=== PATIENT | female | born 1990 | race Caucasian/White ===

== ENCOUNTER → 2019-06-10 15:50 | Observation (INO) ==
--- NOTE | 2019-06-10 15:58 | OB/GYN Progress Note ---
Date of Encounter: 06/10/19 Time of Encounter: 15:53 - Assessment and Plan (1) Uterine contractions Current Visit: Yes Status: Acute Initially made cervical change from 1-2 cm, after 2 more hours of ambulation, may no further cervical change. Discussed options with patient staying admitted in watching for change or being discharge. Patient decided to be discharged. Discharge home with labor and when to return to triage precautions. Patient verbalizes understanding and in agreement with plan (2) 38 weeks gestation of Current Visit: Yes Status: Acute Subjective - Subjective Interval history: 38+4 presents to triage with complaints of contractions. Patient having contractions all day which are getting stronger more freely together, reports good movement, denies vaginal bleeding or leaking of fluid. Antepartum ROS: movement normal, contractions, no loss of fluid, no vaginal bleeding Objective - Vital Signs Vital Signs: Intake and Output 06/09/19 06/10/19 06/10/19 23:59 07:59 15:59 Other: Weight 108.3 kg Patient Weight 06/10/19 23:59 Weight 108.3 kg - Exam FHR: auscultation normal Cervical dilation: 2-3/50/-2
== END | disposition home or self-care (01) ==
LOC: 1NENULAB
PROVIDERS: ADMIT Advanced Practice Midwife; ATTEND Advanced Practice Midwife

== ENCOUNTER 2019-06-17 11:59 | Inpatient (IN) ==
[2019-06-17] MEDS ORDERED: Ondansetron 4 MG/2 ML VIAL IVP PRN (12:20)
[2019-06-17] MEDS ORDERED: Lidocaine 1% 20 ML MDV ID PRN (12:20)
[2019-06-17] MEDS ORDERED: *HR* Nalbuphine 10 MG/ML AMPUL IVP PRN (12:20)
[2019-06-17] MEDS ORDERED: Famotidine 20 MG/2 ML VIAL IVP PRN (12:20)
[2019-06-17] MEDS ORDERED: Metoclopramide 10 MG/2 ML VIAL IVP PRN (12:20)
[2019-06-17] MEDS ORDERED: Naloxone 0.4 MG/ML INJ IVP PRN (12:20)
[2019-06-17] MEDS ORDERED: miSOPROStol 25 MCG TABLET VG PRN (12:29)
[2019-06-17] MEDS ORDERED: Ringers Solution, Lactated 1,000 ML IVC SCH (12:30)
[2019-06-17 12:42] LABS: Basophils % 0.1 %; Eosinophils % 0.5 %; Hematocrit 36.9 % (35.3-44.9); Hemoglobin 12.7 g/dL (11.5-15.4); Immature Granulocytes % 0.5 % (0-4); Lymphocytes # 1.8 K/mcL (0.6-4.6); Lymphocytes % 20.5 %; Mean Corpuscular HGB Conc 34.4 g/dL (31.6-35.5); Mean Platelet Volume 10.4 fL (9.4-12.4); Monocytes # 0.4 K/mcL (0.0-1.3); Neutrophils # 6.4 K/mcL (1.6-8.9); Platelet Count 272 K/mcL (140-400); Red Cell Distribution Width 12.3 % (11.5-14.5); Segmented Neutrophils % 74.4 %; White Blood Count 8.7 K/mcL (4.3-11.1)
[2019-06-17 12:50] LABS: Amphetamine Screen,Urine Negative ng/mL (Cutoff=1000); Barbiturate Screen,Urine Negative ng/mL (Cutoff=200); Benzodiazepines Screen,Urine Negative ng/mL (Cutoff=200); Cannabinoid Screen,Urine Negative ng/mL (Cutoff = 50); Cocaine Screen,Urine Negative ng/mL (Cutoff= 300); Opiate Screen,Urine Negative ng/mL (Cutoff=300); Phencyclidine Screen,Urine Negative ng/mL (Cutoff=25)
--- NOTE | 2019-06-17 12:58 | OB/GYN History & Physical ---
Date of Encounter: 06/17/19 Time of Encounter: 12:53 Assessment and Plan (1) and not yet delivered in third trimester Current visit: Yes Status: Acute (2) 39 weeks gestation of Current visit: Yes Status: Acute (3) Elective induction of labor planned Current visit: Yes Status: Acute Patient be induced with a Campbell catheter and Cytotec plan is to anticipate vaginal delivery History of Present Illness HPI: Ms. Marino is a 28 year old female 4 para 3002 at 39-4/7 weeks who presented for induction of labor secondary to term with favorable cervix. Patient has been seen recently delivery was diagnosed as being 2-3 cm. Patient's history is complicated with her last baby had major cardiac anomaly and after . Patient has had a echo and maternal medicine consultations with this and everything has been ruled out. Patient recently had an ultrasound which placed the baby at 3270 g which was the 80th percentile for growth that she had an amniotic fluid index of 23 cm. There was a recommendation by maternal- medicine when she hit 39 week range to talk about induction. She was having contractions but is not having any contractions at this time still having good movement no vaginal bleeding discharge no leaking of fluid, patient is O+, GBS negative, rubella positive, Varicella positive. Past Med Surg Social Fam HX - Past Medical History Source: patient, old records reviewed Medical history: no medical history Additional medical history: History of endometriosis Psychiatric history: no psych history - Past Surgical History Additional surgical history: laparoscopy at 18 for endometriosis. wisdom teeth - Social History Smoking Status: Never smoker Smokeless Tobacco Status: No Alcohol use: none Drug use: none Occupational status: employed Current living situation: Home - Independent Activity Level: Independent ambulation Recent Out of Country Travel Within the Last 8 Weeks: No Exposure or Possible Exposure to Illness During Travel: No - Family History Mother Living Status: Still Living Hx Family Cardiac Disorders: No Hx Family Respiratory Disorders: No Hx Family Cancer: No Hx Family GI Disorders: No Hx Family Genitourinary Disorders: No Hx Family Endocrine Disorder: No Hx Family Musculoskeletal Disorders: No Hx Family Neuromuscular Disorders: No Hx Family Neurologic Disorders: No Hx Family HEENT Disorders: No Hx Family Autoimmune Disorders: No Hx Family Reproductive Disorders: No Hx Family Psychosocial Disorders: No Hx Family Medical Disorders: No - Additional Family History Additional family history: Family history noncontributory Obstetrical History - Pregnancies : 4 Para: 3 Term: 3 : 0 Ab's: 0 Livin Medications and Allergies Pnv95/Ferrous Fumarate/FA [ Vitamin Tablet] 1 tab PO DAILY 06/10/19 [History] Allergy/AdvReac Type Severity Reaction Status Date / Time ketorolac [From Toradol] Allergy See Verified 06/17/19 12:25 Comments Review of System OB All systems PM: reviewed and no additional remarkable complaints except as stated Exam - Constitutional Constitutional: well developed, well nourished, no acute distress, average body habitus - HEENT HEENT: EOMI, PERRL, Normocephaly, Mucus Membranes Moist - Neck Neck exam: full ROM - Lungs Respiratory exam: CTAB - Cardiovascular Cardiovascular exam: RRR - Abdomen Abdomen: Present: bowel sounds normal, gravid ( heart tones 140s reactive no contraction seen) - Cervix Dilation: 2 Effacement: 80 Station: -3 (Campbell catheter placed with 40 mL balloon inflated followed by 25 g of Cytotec placed vaginally) - Uterus Uterus exam: Present: enlarged Results Result Diagrams: 06/17/19 12:20 All other labs normal. - VTE Reasons for not Prescribing Prophylaxis: Treatment not Indicated - Low risk for VTE
[2019-06-17] MEDS ORDERED: Epidural Premix (fent/bupiv) 110 ML EP SCH (14:00)
--- NOTE | 2019-06-17 14:07 | Anesthesia Evaluation PreOp ---
Date of Encounter: 06/17/19 Time of Encounter: 14:09 - Past History Planned Operation: del, , 39wk induction Cardiac History: Denies any Significant Hx Pulmonary History: Denies Any Significant HX BUILDER'S LABOURER History: Denies Any Significant HX Other Medical History: Denies Any Significant HX Anesthesia History: No Prior Anesthetic Complications, Past Anesthesia (3 previous epidural, first one did not work well, no other known anes comp) Alcohol Use: none Drug use: none Medications and Allergies Pnv95/Ferrous Fumarate/FA [ Vitamin Tablet] 1 tab PO DAILY 06/10/19 [History] Allergy/AdvReac Type Severity Reaction Status Date / Time ketorolac [From Toradol] Allergy See Verified 06/17/19 12:25 Comments Anesthesia Results - Labs 06/17/19 12:20 Anesthesia Exam - HEENT Pupil (Motor): Pupils equal Mallampati: II Teeth: Normal Oral Opening: Greater than 3 - BUILDER'S LABOURER LOC: Oriented BUILDER'S LABOURER Motor: Normal RUE, Normal LUE, Normal RLE, Normal LLE, Normal Face BUILDER'S LABOURER Sensory: Normal: RUE, LUE, RLE, LLE, Face - Cardiac Rhythm: Regular Murmur: None - Pulmonary Breath Sounds: bilateral Clear Respiratory Effort: Symmetrical Anesthesia Assess/Plan ASA Score: 2 Level of consciousness: Cooperative, Oriented Anesthetic Plan: General, Spinal, Epidural Monitoring Plan: Standard Monitors Recovery Plan: PACU
--- NOTE | 2019-06-17 17:54 | Anesthesia Procedures ---
Date of Encounter: 06/17/19 Time of Encounter: 17:31 Procedures: Anesthesia - Epidural/Spinal Patient ID/Chart reviewed: Yes Patient examined: Yes OB Eval: Contractions: Non-stressed pattern Consent Obtained: Yes Supplemental Oxygen: None/Room Air Site Prep: Aseptic Technique, Sterile prep and drape, 0.5% Chlorhexidine/Alcohol Patient position: upright Local Anesthetic: Lidocaine 1% Amount of Local Anesthetic used: 2 Touhy Needle Gauge: 18 Touhy Needle Depth (cm): 7 Catheter Depth at Skin (cm): 13 Test Dose (1.5% Lido + Epi): Volume given (mls): 4 Test Dose Result: Negative Loading Dose: Other: 10ml from solution Loading Dose Administered: Thru Catheter Infusion Med: 0.125% Bupivacaine w/ 2 mcg/ml Fentanyl Infusion Rate (mls/hr): [address]: Tegaderm, Tape Interspace Used: L2-L3 Loss of Resistance (DEBO): Yes (saline) Blood: No CSF: Yes (25g purposeful) Paresthesia: No Procedure: vss though out, FHR per team
--- NOTE | 2019-06-17 18:43 | OB Labor Progress Note ---
Date of Encounter: 06/17/19 Time of Encounter: 18:00 Labor Progress Note - Subjective Subjective: Patient comfortable after epidural. The catheter is out - Cervix Cervix: 5/80/-2 AROM clear fluid large amount - Heart Tones Heart Tones: heart tones 140s reactive - [place]: Contractions every 2 minutes - Interventions Interventions: Continue current care anticipate vaginal delivery
[2019-06-17] MEDS ORDERED: *HR* Ropivacaine/PF 0.5% 20 ML VIAL ONE (20:34)
--- NOTE | 2019-06-17 21:54 | OB/GYN Procedure Note ---
Delivery - Delivery Date: 06/17/19 Provider: Jean Perez Intrapartum events: none Delivery induction: morris, misoprostol Delivery augmentation: rupture of membranes Delivery monitor: external FHT, external uterine Anesthesia: epidural Quantitated Blood Loss: 50 - Infant (s) Infant A Delivery Date: 06/17/19 Infant Delivery Time: 21:29 Presentation: vertex Position: OA Route of delivery: Gender: Female Viability: Viable Pounds: 9 Ounces: 0 Weight Gram: 4.085 kg at 1 minute: 8 at 5 mins: 9 Shoulder Dystocia: not encountered Specimens collected: cord blood Placenta: spontaneous Cord: nuchal cord, 3 umbilical vessels, nuchal cut - Repair Episiotomy: none Laceration Description: None - Complications Delivery complications: none Delivery comments: Patient is a 28-year-old 4 para 3002 at 39-4/7 weeks who presented for induction of labor secondary with favorable cervix. Patient was 3-4 cm last time she was on labor and delivery and was advised when she was 39 weeks we can induce her. Patient's last baby had major cardiac anomalies and a few days after she delivered. Patient was cleared by maternal medicine normal echo normal detailed ultrasound but they did recommend delivery in the 39 week range. Patient was brought and Morris catheter and Cytotec was placed catheter fill out a couple hours later epidural was placed and she was artificially ruptured large amount clear fluid patient progressed probably no additional augmentation was needed patient became complete and pushed twice delivering a viable female infant in occiput anterior presentation at 2128. There was a nuchal cord 1 was tight was clamped and cut and the was fully delivered infant was placed on maternal abdomen and bulb suction. Apgars were 8 at 1 minute, 9 appointment, weight was 9 lbs. 0 oz. 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 Perineum cervix and vagina was well visualized intact. She will be observed 2 hours before being taken to the floor - Disposition Mom disposition: stable in LDR disposition: stable in LDR
[2019-06-17] MEDS ORDERED: Acetaminophen 325 MG TABLET PO ONE (22:55)
[2019-06-17] MEDS ORDERED: Ibuprofen 600 MG TABLET PO ONE (22:57)
[2019-06-17] MEDS ORDERED: Oxytocin 20 units/ LR 1000 mL 20 UNIT/1,000 ML BAG IVC ONE (23:06)
[2019-06-17] MEDS ORDERED: Measles/Mumps/Rubella Vacc 0.5 ML VIAL SQ PRN (23:54)
[2019-06-17] MEDS ORDERED: Oxytocin 20 units/ LR 1000 mL 20 UNIT/1,000 ML BAG IVC SCH (23:54)
[2019-06-17] MEDS ORDERED: Rho Immune Globulin 1,500 UNIT SYRINGE IM PRN (23:54)
[2019-06-17] MEDS ORDERED: Acetaminophen 325 MG TABLET PO PRN (23:54)
[2019-06-18] MEDS: Ibuprofen 600 MG TABLET PO PRN ×2 (06:59→14:58)
[2019-06-18 07:00] LABS: Basophils % 0.2 %; Eosinophils % 0.4 %; Hematocrit 33.8 % (35.3-44.9); Hemoglobin 11.4 g/dL (11.5-15.4); Immature Granulocytes % 0.4 % (0-4); Lymphocytes # 1.9 K/mcL (0.6-4.6); Lymphocytes % 18.4 %; Mean Corpuscular HGB Conc 33.7 g/dL (31.6-35.5); Mean Corpuscular Hemoglobin 31.5 pg (28.0-33.3); Mean Corpuscular Volume 93.4 fL (83.0-100.0); Mean Platelet Volume 10.6 fL (9.4-12.4); Monocytes # 0.6 K/mcL (0.0-1.3); Monocytes % 6.2 %; Neutrophils # 7.5 K/mcL (1.6-8.9); Platelet Count 213 K/mcL (140-400); Red Blood Count 3.62 M/mcL (3.82-4.97); Red Cell Distribution Width 12.6 % (11.5-14.5); Segmented Neutrophils % 74.4 %; White Blood Count 10.1 K/mcL (4.3-11.1)
[2019-06-18] MEDS: Prenatal Vit/FA 1 EACH TABLET PO SCH (08:43)
--- NOTE | 2019-06-18 09:13 | OB/GYN Progress Note ---
Date of Encounter: 06/18/19 Time of Encounter: 09:11 - Assessment and Plan (1) Vaginal delivery Current Visit: Yes Status: Acute Continue routine care Meeting all milestones Discharge home tomorrow Subjective - Subjective Principal diagnosis: S/P Vaginal Delivery Day 1 Interval history: S/P Vaginal Delivery Day 1 Pain is well controlled Lochia is light and without clots Voiding without difficulty Passing flatus VSS going well Anticipate discharge home tomorrow POC per consult with Dr Dodge Patient reports: appetite normal, voiding normally, pain well controlled : doing well Objective - Latest Vital Signs Latest vital signs: Vital Signs Temp Pulse Resp BP Pulse Ox 06/18/19 07:32 98.5 F 58 16 112/70 97 06/18/19 01:50 98.6 F 64 20 106/58 97 06/18/19 01:10 98.7 F 69 16 105/62 98 06/18/19 00:05 99.1 F 75 16 105/65 97 Intake and Output 06/17/19 06/18/19 06/18/19 23:59 07:59 15:59 Intake Total 700 / 700 Output Total 700 / 700 Balance 0 / 0 Intake: Oral 300 / 300 Other 400 / 400 Output: Urine 700 / 700 Other: Weight 107.3 kg Patient Weight 06/18/19 23:59 Weight 107.3 kg - Exam Lungs: bilateral: normal Chest: Normal S1, Normal S2 Extremities: Present: normal Abdomen: Present: normal appearance, soft. Absent: gravid Uterus: Present: normal, firm Uterus Position: At Umbilicus, Midline - Labs Labs: Laboratory Results - last 24 hr 06/17/19 06/17/19 06/18/19 12:20 12:20 06:31 WBC 8.7 10.1 RBC 4.10 3.62 L Hgb 12.7 11.4 L Hct 36.9 33.8 L MCV 90.0 93.4 MCH 31.0 31.5 MCHC 34.4 33.7 RDW 12.3 12.6 Plt Count 272 213 MPV 10.4 10.6 Immature Gran % 0.5 0.4 Seg Neutrophils % 74.4 74.4 Lymphocytes % 20.5 18.4 Monocytes % 4.0 6.2 Eosinophils % 0.5 0.4 Basophils % 0.1 0.2 Neutrophils # 6.4 7.5 Lymphocytes # 1.8 1.9 Monocytes # 0.4 0.6 Eosinophils # 0.0 0.0 Basophils # 0.0 0.0 Urine Opiates Screen Negative Ur Buprenorphine Scrn Negative Ur Barbiturates Screen Negative Ur Phencyclidine Scrn Negative Ur Amphetamines Screen Negative U Benzodiazepines Scrn Negative Urine Cocaine Screen Negative U Marijuana (THC) Screen Negative Ur Drug Screen Interp See Below
[2019-06-19 08:04] VITALS: BP 108/72
[2019-06-19] MEDS: Prenatal Vit/FA 1 EACH TABLET PO SCH (08:56)
[2019-06-19] MEDS: Ibuprofen 600 MG TABLET PO PRN (08:56)
--- NOTE | 2019-06-19 09:40 | Discharge Summary ---
Date of Encounter: 06/19/19 Time of Encounter: 09:38 - Discharge Diagnosis (1) Breast feeding status of mother Priority: Secondary Status: Acute (2) Vaginal delivery Priority: Primary Status: Acute Comments: Pt meeting all milestones. She desires discharge home today. - Discharge Medications Prescriptions: New Ibuprofen [Motrin] 600 mg PO Q6H PRN #30 tablet PRN Reason: Cramping Docusate [Colace] 100 mg PO BID #30 capsule Continued Pnv95/Ferrous Fumarate/FA [ Vitamin Tablet] 1 tab PO DAILY Home Medications: Pnv95/Ferrous Fumarate/FA [ Vitamin Tablet] 1 tab PO DAILY 06/10/19 [History] Docusate [Colace] 100 mg PO BID #30 capsule 06/19/19 [Rx] Ibuprofen [Motrin] 600 mg PO Q6H PRN #30 tablet 06/19/19 [Rx] Allergies/Adverse Reactions: Allergy/AdvReac Type Severity Reaction Status Date / Time ketorolac [From Toradol] Allergy See Verified 06/17/19 12:25 Comments Data Procedures and tests throughout hospitalization: Laboratory Tests 06/17/19 06/17/19 06/18/19 12:20 12:20 06:31 WBC 8.7 10.1 RBC 4.10 3.62 L Hgb 12.7 11.4 L Hct 36.9 33.8 L MCV 90.0 93.4 MCH 31.0 31.5 MCHC 34.4 33.7 RDW 12.3 12.6 Plt Count 272 213 MPV 10.4 10.6 Immature Gran % 0.5 0.4 Seg Neutrophils % 74.4 74.4 Lymphocytes % 20.5 18.4 Monocytes % 4.0 6.2 Eosinophils % 0.5 0.4 Basophils % 0.1 0.2 Neutrophils # 6.4 7.5 Lymphocytes # 1.8 1.9 Monocytes # 0.4 0.6 Eosinophils # 0.0 0.0 Basophils # 0.0 0.0 Urine Opiates Screen Negative Ur Buprenorphine Scrn Negative Ur Barbiturates Screen Negative Ur Phencyclidine Scrn Negative Ur Amphetamines Screen Negative U Benzodiazepines Scrn Negative Urine Cocaine Screen Negative U Marijuana (THC) Screen Negative Ur Drug Screen Interp See Below Date of admission: 06/17/19 11:59 Primary care physician: PCP NONE Consults: 06/17/19 23:54 Consult to Tomography Technologist [CONS] Routine Comment: Vaginal delivery, consult needed Discharging clinician: Lynn Rodriguez Anticipated date of discharge: 06/19/19 - Patient Status Disposition: Home, Self-Care Condition: Good Functional capacity at discharge: independent ambulation Overall status at discharge: patient is progressing back to baseline - Discharge Instructions Follow Up With: NONE,PCP [Primary Care Provider] - Jean Perez, DO [Partnered Physician] - - Diet and Activity Activity: increase activity as tolerated Diet: regular diet Hospital Course Reason for admission: induction of labor Delivery: Episiotomy: none Laceration: none Other procedures: none complications: none Discharge diagnosis: IUP at term delivered [place] baby: female Hospital course: - Delivery Date: 06/17/19 Provider: Jean Perez Intrapartum events: none Delivery induction: morris, misoprostol Delivery augmentation: rupture of membranes Delivery monitor: external FHT, external uterine Anesthesia: epidural Quantitated Blood Loss: 50 - Infant (s) Infant A Delivery Date: 06/17/19 Infant Delivery Time: 21:29 Presentation: vertex Position: OA Route of delivery: Gender: Female Viability: Viable Pounds: 9 Ounces: 0 Weight Gram: 4.085 kg at 1 minute: 8 at 5 mins: 9 Shoulder Dystocia: not encountered Specimens collected: cord blood Placenta: spontaneous Cord: nuchal cord, 3 umbilical vessels, nuchal cut - Repair Episiotomy: none Laceration Description: None - Complications Delivery complications: none Delivery comments: Patient is a 28-year-old 4 para 3002 at 39-4/7 weeks who presented for induction of labor secondary with favorable cervix. Patient was 3-4 cm last time she was on labor and delivery and was advised when she was 39 weeks we can induce her. Patient's last baby had major cardiac anomalies and a few days after she delivered. Patient was cleared by maternal medicine normal echo normal detailed ultrasound but they did recommend delivery in the 39 week range. Patient was brought and Morris catheter and Cytotec was placed catheter fill out a couple hours later epidural was placed and she was artificially ruptured large amount clear fluid patient progressed probably no additional augmentation was needed patient became complete and pushed twice delivering a viable female in occiput anterior presentation at 2128. There was a nuchal cord 1 was tight was clamped and cut and the infant was fully delivered was placed on maternal abdomen and bulb suction. Apgars were 8 at 1 minute, 9 appointment, weight was 9 lbs. 0 oz. 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 Perineum cervix and vagina was well visualized intact. She will be observed 2 hours before being taken to the floor - Disposition Mom disposition: home PPD2 disposition: home with mother, Time Attestation: Total time spent providing and/or coordinating discharge services: Time Spent: Less than 30 minutes Exam - Constitutional Vitals: Temp Pulse Resp BP Pulse Ox 97.8 F 65 16 108/72 97 06/19/19 08:03 06/19/19 08:03 06/19/19 08:03 06/19/19 08:03 06/18/19 20:09 General appearance IM: A&O X 3 - Respiratory Respiratory exam: Present: CTAB - Cardiovascular Cardiovascular exam IM: Present: RRR - GI/Abdominal GI/Abdominal exam IM: soft - Uterine Tone: Firm Uterus Position: 1 Finger Below Umbilicus - Extremities Exam Extremities exam IM: Present: normal inspection - Neurological Exam Neurological exam: normal gait, oriented X3 - Psychiatric Additional comments: reports good mood
== END 2019-06-19 11:15 | disposition home or self-care (01) | DRG 807 ==
LOC: 1NENULAB 11:59 → 1NENUOBS 23:50
PROVIDERS: ADMIT Obstetrics & Gynecology; ATTEND Obstetrics & Gynecology

== ENCOUNTER → 2021-09-23 13:40 | Observation (INO) ==
[~2021-09-23 13:40] MED LIST: EPHEDrine 50 MG/ML VIAL IVP PRN; Epidural Premix (fent/bupiv) 110 ML EP SCH
== END | disposition home or self-care (01) ==
LOC: 1NENULAB
PROVIDERS: ADMIT Advanced Practice Midwife; ATTEND Advanced Practice Midwife